=== PATIENT | female | born 1940 | race Caucasian/White ===

== ENCOUNTER 2020-07-05 11:47 | Inpatient (IN) | payer MEDICARE ==
[2020-07-05] VITALS (9 sets, daily range): BP systolic 147–178; BP diastolic 83–101
[~2020-07-05] VITALS: Ht 162.6 cm; Wt 74.0 kg
[2020-07-05] MEDS ORDERED: ONDANSETRON PF 4 MG/2 ML VIAL. ONE (12:11)
[2020-07-05 12:13] LABS: BASO % 1 % (0-3); EOS # 0.1 x10^3/uL (0.0-0.7); EOS % 1 % (0-3); HEMATOCRIT 43.6 % (36.0-47.0); HEMOGLOBIN 14.8 g/dL (12.0-15.5); LYMPH # 2.1 x10^3/uL (1.0-4.8); LYMPH % 25 % (24-48); MEAN CORPUSCULAR HEMOGLOBIN 29 pg (25-35); MEAN CORPUSCULAR HGB CONC 34 g/dL (31-37); MEAN CORPUSCULAR VOLUME 86 fL (79-100); MONO # 0.4 x10^3/uL (0.0-1.1); MONO % 5 % (0-9); NEUT # 5.6 x10^3/uL (1.8-7.7); NEUT % 68 % (31-73); PLATELET COUNT 212 x10^3/uL (140-400); RED BLOOD COUNT 5.07 x10^6/uL (3.50-5.40); RED CELL DISTRIBUTION WIDTH 13.6 % (11.5-14.5); WHITE BLOOD COUNT 8.3 x10^3/uL (4.0-11.0)
--- NOTE | 2020-07-05 12:15 | RAD ---
EXAM: CT Head without IV contrast INDICATION: Reason: CODE STROKE, FOUND DOWN / Spl. Instructions: / History: TECHNIQUE: Multi-detector row CT images were obtained of the head without the use of IV contrast. All CT scans performed at this facility utilize dose optimization techniques as appropriate to the exam, including the following: Automated exposure control and adjustment of the mA and/or KV according to patient size (this includes techniques or standardized protocols for targeted exams where dose is indication/reason for exam). COMPARISON: None FINDINGS: BRAIN PARENCHYMA: No evidence of acute intraparenchymal hemorrhage or infarct. There is extensive bilateral white matter low density that is nonspecific but compatible chronic ischemic microvascular change. VENTRICLES & EXTRA-AXIAL SPACES: Ventricles are within normal limits. Basilar cisterns are patent. No pathologic extra-axial fluid collection or mass. ORBITS: Orbital contents are unremarkable. SINUSES: Visualized paranasal sinuses and mastoid air cells are clear. OSSEOUS & SOFT TISSUES: Calvarium and skull base are intact. IMPRESSION: No acute intracranial pathology. EXAM: CT Cervical Spine without IV contrast INDICATION: Reason: CODE STROKE, FOUND DOWN / Spl. Instructions: / History: TECHNIQUE: Multi-detector row CT images were obtained through the cervical spine without the use of IV contrast. Post-processing sagittal and coronal reconstructed images were obtained for interpretation. All CT scans performed at this facility utilize dose optimization techniques as appropriate to the exam, including the following: Automated exposure control and adjustment of the mA and/or KV according to patient size (this includes techniques or standardized protocols for targeted exams where dose is indication/reason for exam). COMPARISON: None available FINDINGS: CRANIOCERVICAL JUNCTION: Unremarkable. ALIGNMENT: Alignment is within normal limits. OSSEOUS: No evidence of fracture or bone destruction. DISC SPACES: There is degenerative change in the lower cervical spine, most conspicuous at C4-C5 through C6-C7. FACET JOINTS: Unremarkable. SPINAL CANAL: Unremarkable. NEUROFORAMINA: Unremarkable. SOFT TISSUES: There are multiple hypodense lesions in the thyroid gland bilaterally, better evaluated on dedicated thyroid ultrasound on an elective basis. The largest measures 2.2 cm in the right thyroid lobe. IMPRESSION: No acute traumatic findings in the cervical spine with multilevel cervical degenerative spondylosis noted. Incidental thyroid lobe nodules that could be better evaluated with dedicated ultrasound on an elective basis. FOR INTERNAL CODING PURPOSES Critical result: Findings discussed with DISHA DELACRUZ at 07/05/2020 12:07 PM. RESULT CODE: (C) Electronically signed by: Blaire Luna MD (07/05/2020 12:12 PM) [id number]
[2020-07-05 12:23] LABS: CALCIUM 9.7 mg/dL (8.5-10.1); CREATININE 1.1 mg/dL (0.6-1.0); GFR 47.6; POTASSIUM 3.3 mmol/L (3.5-5.1)
[2020-07-05 12:26] LABS: PROTHROMBIN TIME PATIENT 12.3 SEC (11.7-14.0)
[2020-07-05 12:30] LABS: ALBUMIN 3.9 g/dL (3.4-5.0); ALBUMIN/GLOBULIN RATIO 1.1 (1.0-1.7); MAGNESIUM 2.3 mg/dL (1.8-2.4); TOTAL BILIRUBIN 0.5 mg/dL (0.2-1.0); TOTAL PROTEIN 7.3 g/dL (6.4-8.2)
[2020-07-05] MEDS ORDERED: IV NORMAL SALINE 50ML 50 ML IV ONE (12:30)
[2020-07-05] MEDS ORDERED: ALTEPLASE IV SCH (12:30)
[2020-07-05] MEDS ORDERED: LABETALOL 20 MG/4 ML DISP.SYRIN. IVP PRN ×2 (12:30→12:45)
[2020-07-05] MEDS ORDERED: IOHEXOL 350 MG/ML 100 ML VIAL. IV ONE (12:30)
--- NOTE | 2020-07-05 12:33 | PHYS DOC ---
General Adult EDM: Chief Complaint: NEURO SYMPTOMS/DEFICITS HPI: HPI: Patient is a 80 year old female who was brought here by EMS from home after she collapsed at home around 10:30 AM this morning. Her stated that patient was totally normal this morning. He heard a loud noise in the kitchen and when the, found her on the floor, could not talk, could not move her left side. EMS was called, a code stroke was activated. Upon arrival to ER, patient was confused, left-sided weakness significantly. Patient was taken directly to CT scan suite for CT head. Neurologist Dr. Elena was consulted he came to ER to see the patient. EMS said they checked the blood sugar at home and it was 156. Review of Systems: Review of Systems: Constitutional: Denies fever or chills. [] Eyes: Denies change in visual acuity. [] HENT: Denies nasal congestion or sore throat. [] Respiratory: Denies cough or shortness of breath. [] Cardiovascular: Denies chest pain or edema. [] GI: Denies abdominal pain, nausea, vomiting, bloody stools or diarrhea. [] : Denies dysuria. [] Musculoskeletal: Denies back pain or joint pain. [] Integument: Denies rash. [] Neurologic: Positive for headache, positive for left-sided weakness positive for slurred speech. Endocrine: Denies polyuria or polydipsia. [] Lymphatic: Denies swollen glands. [] Psychiatric: Denies depression or anxiety. [] Heart Score: Risk Factors: Risk Factors: DM, Current or recent (<one month) smoker, HTN, HLP, family history of CAD, obesity. Risk Scores: Score 0 - 3: 2.5% MACE over next 6 weeks - Discharge Home Score 4 - 6: 20.3% MACE over next 6 weeks - Admit for Clinical Observation Score 7 - 10: 72.7% MACE over next 6 weeks - Early Invasive Strategies Current Medications: Current Medications Medications (Trade) Dose Ordered Sig/Jeyson Start Time Stop Time Status Last Admin Dose Admin Alteplase, Recombinant 0 ml @ 0 mls/hr Q1H 07/05/20 12:30 07/05/20 12:31 DC Iohexol (Omnipaque 350 Mg/ml) 60 ml 1X ONCE 07/05/20 12:30 07/05/20 12:31 UNV Labetalol HCl (Normodyne Iv Push) 10 mg PRN Q10MIN PRN 07/05/20 12:30 Ondansetron HCl (Zofran) 4 mg 1X ONCE 07/05/20 12:45 07/05/20 12:46 07/05/20 12:23 4 MG Sodium Chloride 50 ml @ 0 mls/hr 1X ONCE 07/05/20 12:30 07/05/20 12:31 DC Allergies: Allergies: Allergies Coded Allergies Type Severity Reaction Last Updated Verified No Known Drug Allergies 07/05/20 No Physical Exam: PE: Constitutional: Well developed, well nourished, no acute distress, non-toxic appearance. [] HENT: Normocephalic, atraumatic, bilateral external ears normal, oropharynx moist, no oral exudates, nose normal. [] Eyes: PERRLA, EOMI, conjunctiva normal, no discharge. [] Neck: Normal range of motion, no tenderness, supple, no stridor. [] Cardiovascular:Heart rate regular rhythm, no murmur [] Lungs & Thorax: Bilateral breath sounds clear to auscultation [] Abdomen: Bowel sounds normal, soft, no tenderness, no masses, no pulsatile masses. [] Skin: Warm, dry, no erythema, no rash. [] Back: No tenderness, no CVA tenderness. [] Extremities: No tenderness, no cyanosis, no clubbing, ROM intact, no edema. [] Neurologic: Alert and oriented X 3, left side weaker than right side, speech was slurred. Psychologic: Affect normal, judgement normal, mood normal. [] Current Patient Data: Labs: Laboratory Tests Test 07/05/20 12:02 White Blood Count 8.3 x10^3/uL (4.0-11.0) Red Blood Count 5.07 x10^6/uL (3.50-5.40) Hemoglobin 14.8 g/dL (12.0-15.5) Hematocrit 43.6 % (36.0-47.0) Mean Corpuscular Volume 86 fL (79-100) Mean Corpuscular Hemoglobin 29 pg (25-35) Mean Corpuscular Hemoglobin Concent 34 g/dL (31-37) Red Cell Distribution Width 13.6 % (11.5-14.5) Platelet Count 212 x10^3/uL (140-400) Neutrophils (%) (Auto) 68 % (31-73) Lymphocytes (%) (Auto) 25 % (24-48) Monocytes (%) (Auto) 5 % (0-9) Eosinophils (%) (Auto) 1 % (0-3) Basophils (%) (Auto) 1 % (0-3) Neutrophils # (Auto) 5.6 x10^3/uL (1.8-7.7) Lymphocytes # (Auto) 2.1 x10^3/uL (1.0-4.8) Monocytes # (Auto) 0.4 x10^3/uL (0.0-1.1) Eosinophils # (Auto) 0.1 x10^3/uL (0.0-0.7) Basophils # (Auto) 0.0 x10^3/uL (0.0-0.2) Prothrombin Time 12.3 SEC (11.7-14.0) Prothrombin Time INR 1.0 (0.8-1.1) Activated Partial Thromboplast Time 22 SEC (24-38) L Sodium Level 139 mmol/L (136-145) Potassium Level 3.3 mmol/L (3.5-5.1) L Chloride Level 99 mmol/L (98-107) Carbon Dioxide Level 25 mmol/L (21-32) Anion Gap 15 (6-14) H Blood Urea Nitrogen 17 mg/dL (7-20) Creatinine 1.1 mg/dL (0.6-1.0) H Estimated GFR (Cockcroft-Gault) 47.6 BUN/Creatinine Ratio 15 (6-20) Glucose Level 139 mg/dL (70-99) H Calcium Level 9.7 mg/dL (8.5-10.1) Magnesium Level 2.3 mg/dL (1.8-2.4) Total Bilirubin 0.5 mg/dL (0.2-1.0) Aspartate Amino Transferase (AST) 21 U/L (15-37) Alanine Aminotransferase (ALT) 25 U/L (14-59) Alkaline Phosphatase 102 U/L (46-116) Total Protein 7.3 g/dL (6.4-8.2) Albumin 3.9 g/dL (3.4-5.0) Albumin/Globulin Ratio 1.1 (1.0-1.7) Laboratory Tests 07/05/20 12:02 Laboratory Tests 07/05/20 12:02 EKG: EKG: [] Radiology/Procedures: Radiology/Procedures: [][facility] [address] [place] [address] IMAGING REPORT Signed PATIENT: RICO ESPOSITO ACCOUNT: [id number] : 1940 LOCATION: ER AGE: 80 SEX: F EXAM STATUS: PRE ER ORD. PHYSICIAN: DISHA DELACRUZ DO REASON: CODE STROKE, FOUND DOWN PROCEDURE: CT HEAD AND CERVICAL SPINE WO EXAM: CT Head without IV contrast INDICATION: Reason: CODE STROKE, FOUND DOWN / Spl. Instructions: / History: TECHNIQUE: Multi-detector row CT images were obtained of the head without the use of IV contrast. All CT scans performed at this facility utilize dose optimization techniques as appropriate to the exam, including the following: Automated exposure control and adjustment of the mA and/or KV according to patient size (this includes techniques or standardized protocols for targeted exams where dose is indication/reason for exam). COMPARISON: None FINDINGS: BRAIN PARENCHYMA: No evidence of acute intraparenchymal hemorrhage or infarct. There is extensive bilateral white matter low density that is nonspecific but compatible chronic ischemic microvascular change. VENTRICLES & EXTRA-AXIAL SPACES: Ventricles are within normal limits. Basilar cisterns are patent. No pathologic extra-axial fluid collection or mass. ORBITS: Orbital contents are unremarkable. SINUSES: Visualized paranasal sinuses and mastoid air cells are clear. OSSEOUS & SOFT TISSUES: Calvarium and skull base are intact. IMPRESSION: No acute intracranial pathology. EXAM: CT Cervical Spine without IV contrast INDICATION: Reason: CODE STROKE, FOUND DOWN / Spl. Instructions: / History: TECHNIQUE: Multi-detector row CT images were obtained through the cervical spine without the use of IV contrast. Post-processing sagittal and coronal reconstructed images were obtained for interpretation. All CT scans performed at this facility utilize dose optimization techniques as appropriate to the exam, including the following: Automated exposure control and adjustment of the mA and/or KV according to patient size (this includes techniques or standardized protocols for targeted exams where dose is indication/reason for exam). COMPARISON: None available FINDINGS: CRANIOCERVICAL JUNCTION: Unremarkable. ALIGNMENT: Alignment is within normal limits. OSSEOUS: No evidence of fracture or bone destruction. DISC SPACES: There is degenerative change in the lower cervical spine, most conspicuous at C4-C5 through C6-C7. FACET JOINTS: Unremarkable. SPINAL CANAL: Unremarkable. NEUROFORAMINA: Unremarkable. SOFT TISSUES: There are multiple hypodense lesions in the thyroid gland bilaterally, better evaluated on dedicated thyroid ultrasound on an elective basis. The largest measures 2.2 cm in the right thyroid lobe. IMPRESSION: No acute traumatic findings in the cervical spine with multilevel cervical degenerative spondylosis noted. Incidental thyroid lobe nodules that could be better evaluated with dedicated ultrasound on an elective basis. FOR INTERNAL CODING PURPOSES Critical result: Findings discussed with DISHA DELACRUZ at 07/05/2020 12:07 PM. RESULT CODE: (C) Electronically signed by: Blaire Luna MD (07/05/2020 12:12 PM) [id number] [facility] [address] [place] [address] IMAGING REPORT Signed PATIENT: RICO ESPOSITO ACCOUNT: [id number] : 1940 LOCATION: ER AGE: 80 SEX: F EXAM STATUS: REG ER ORD. PHYSICIAN: DISHA DELACRUZ DO REASON: CODE STROKE, SLURRED SPEECH, [id number] 60ML PROCEDURE: CTA HEAD/NECK - CODE STROKE CTA HEAD/NECK - CODE STROKE History:Reason: CODE STROKE, SLURRED SPEECH, [id number] 60ML / Spl. Instructions: / History: Technique: After bolus of intravenous contrast, volumetric CT data acquisition was acquired of the head and neck. Multiplanar reconstruction images to include MIP and 3-D reconstruction images are submitted. Exposure: One or more of the following individualized dose reduction techniques were utilized for this examination: 1. Automated exposure control 2. Adjustment of the mA and/or kV according to patient size 3. Use of iterative reconstruction technique. Comparison: July 05, 2020 Any determination of stenosis is based on NASCET criteria. Head CTA: ICA: Bilateral carotid siphon atheromatous plaque. No stenosis or occlusion. MCA: No stenosis, occlusion or aneurysm. TANA: No stenosis, occlusion or aneurysm. ADOLESCENT SPECIALIST: No stenosis, occlusion or aneurysm. Basilar artery: No stenosis, occlusion or aneurysm. Distal vertebral arteries: No stenosis, occlusion or aneurysm. Mild paranasal sinus mucosal thickening most prominent within the right maxillary sinus. Mastoid air cells are clear. CT angiogram neck: Aortic arch: Atheromatous plaque within the aortic arch and branch vessels. Common carotid arteries: No stenosis, occlusion or dissection. Tortuous common carotid arteries proximally. Internal carotid arteries: No stenosis, occlusion or dissection. Mild atheromatous plaque within the left carotid bifurcation. External carotid arteries: Patent Vertebral arteries: No stenosis, occlusion or dissection. Mild atheromatous plaque within the right vertebral artery origin. Mild pulmonary emphysema. 5 mm right upper lobe nodular opacity (series 3 image 70). Bilateral upper lobe calcified pulmonary nodules. Enlarged multinodular thyroid with largest right thyroid nodule measuring 1.9 cm. Bones: Advanced multilevel cervical spondylosis most prominent C4-C5, C5-C6 and C6-C7. Impression: 1. No arterial stenosis or occlusion within the head or neck. 2. Mild atheromatous plaque within the head and neck. 3. Right upper lobe nodular opacity. Recommend comparison with prior imaging studies. If prior imaging studies are not available, recommend one-year follow-up if high risk. 4. Multinodular thyroid. Nonemergent ultrasound can further evaluate. FOR INTERNAL CODING PURPOSES Critical result: Findings discussed with DISHA DELACRUZ at 07/05/2020 1:33 PM. RESULT CODE: (C) Electronically signed by: Moncho Cat DO (07/05/2020 1:35 PM) [id number] DICTATED and SIGNED BY: MONCHO CAT DO DATE: 07/05/20 1335 Course & Med Decision Making: Course & Med Decision Making Pertinent Labs and Imaging studies reviewed. (See chart for details) NIHSS per Rn was 8. Patient was evaluated by neurologist Dr. Trever Elena, who recommended to give patient IV TPA. Patient will receive TPA in the ER, her symptoms improved significantly. Her NIH stroke scale improved to 1 after TPA was given. Patient will be admitted to hospital for further evaluation and treatment. Dragon Disclaimer: Dragon Disclaimer: This electronic medical record was generated, in whole or in part, using a voice recognition dictation system. Departure Departure Impression: Primary Impression: Acute CVA (cerebrovascular accident) Disposition: ADMITTED INPATIENT Admitting Physician: JENNA (Dr. Gavino Vu), Gavino Vu Condition: IMPROVED Justicifation of Admission Dx: Justifications for Admission: Justification of Admission Dx: Yes Stroke - Ischemic: Stroke-Ischemic DISHA DELACRUZ DO Jul 05, 2020 12:33
[2020-07-05] MEDS ORDERED: ALTEPLASE 6.2 MG IV ONE (12:45)
[2020-07-05] MEDS ORDERED: ONDANSETRON PF 4 MG/2 ML VIAL. IVP ONE (12:45)
[2020-07-05] MEDS ORDERED: CONTRAST GIVEN. MC PRN (12:45)
[2020-07-05] MEDS ORDERED: ACETAMINOPHEN 325 MG SUPP.RECT. PR PRN (12:45)
[2020-07-05] MEDS ORDERED: ACETAMINOPHEN 325 MG TABLET. PO PRN (12:45)
[2020-07-05] MEDS ORDERED: ONDANSETRON PF 4 MG/2 ML VIAL. IV PRN (12:45)
--- NOTE | 2020-07-05 13:20 | PDOC2 ---
NEUROLOGY CONSULT Date of Service DOS: DATE: 07/05/20 TIME: 13:13 Reason for Consult Reason for Consult: Stroke Referring Physician Referring Physician: Dr. Vu Source Source: Caregiver (), Chart review, Patient History of Present Illness History of Present Illness I am examining the patient in the emergency department. She is an 80-year-old right-handed female who's has been heard that at 10:30 AM today find a patient on the floor. There was some aphasia and right-sided weakness. There is no prior history of stroke, seizure, or head injury. She denies headache or diplopia. Past Medical History Cardiovascular: HTN, Hyperlipidemia Endocrine: Diabetes Past Surgical History Past Surgical History: No pertinent history Family History Family History: CAD, Other ( arthritis) Social History Social History , no tobacco or alcohol Current Medications Current Medications Current Medications Ondansetron HCl (Zofran) 4 mg STK-MED ONCE .ROUTE ; Start 07/05/20 at 12:11; Stop 07/05/20 at 12:12; Status DC Ondansetron HCl (Zofran) 4 mg 1X ONCE IVP Last administered on 07/05/20at 12:23; Start 07/05/20 at 12:45; Stop 07/05/20 at 12:46; Status DC Alteplase, Recombinant 0 ml @ 0 mls/hr 1X ONCE IV Last administered on 07/05/20at 12:34; Start 07/05/20 at 12:45; Stop 07/05/20 at 12:46; Status DC Alteplase, Recombinant 0 ml @ 0 mls/hr Q1H IV Last administered on 07/05/20at 12:37; Start 07/05/20 at 12:30; Stop 07/05/20 at 12:31; Status DC Sodium Chloride 50 ml @ 0 mls/hr 1X ONCE IV ; Start 07/05/20 at 12:30; Stop 07/05/20 at 12:31; Status DC Labetalol HCl (Normodyne Iv Push) 10 mg PRN Q10MIN PRN IVP HYPERTENSION; Start 07/05/20 at 12:30; Stop 07/05/20 at 12:52; Status DC Iohexol (Omnipaque 350 Mg/ml) 60 ml 1X ONCE IV Last administered on 07/05/20at 12:57; Start 07/05/20 at 12:30; Stop 07/05/20 at 12:34; Status DC Info (CONTRAST GIVEN -- Rx MONITORING) 1 each PRN DAILY PRN MC SEE COMMENTS; Start 07/05/20 at 12:45; Stop 07/07/20 at 12:44 Sodium Chloride 1,000 ml @ 70 mls/hr [id number] IV ; Start 07/05/20 at 12:44 Labetalol HCl (Normodyne Iv Push) 10 mg PRN Q10MIN PRN IVP HYPERTENSION; Start 07/05/20 at 12:45 Nicardipine HCl 50 mg/Sodium Chloride 250 ml @ 25 mls/hr CONT PRN PRN IV HYPERTENSION; Start 07/05/20 at 12:45 Acetaminophen (Tylenol) 650 mg PRN Q6HRS PRN PO MILD PAIN / TEMP > 100.3'F; Start 07/05/20 at 12:45 Acetaminophen (Tylenol Supp) 325 mg PRN Q6HRS PRN [place] MILD PAIN / TEMP > 100.3'F; Start 07/05/20 at 12:45 Ondansetron HCl (Zofran) 4 mg PRN Q6HRS PRN IV NAUSEA/VOMITING; Start 07/05/20 at 12:45 Allergies Allergies: Coded Allergies: No Known Drug Allergies (Unverified , 07/05/20) ROS Review of System Negative for fever, chills, weight loss, shortness of breath, chest pain, indigestion, hematochezia, melena, and dysuria. Full 14-point review of systems is negative. Physical Exam Physical Examination General: Well-developed, well-nourished white female in no acute distress HEENT: Normocephalic andatraumatic. Temporal arteriespulsatile and nontender. Neck: Supple without bruit, no meningismus Musculoskeletal: Stability:see neurologic. Gait exam:see neurologic. Tone:see neurologic.Strength:see neurologic. Neurological: Mental Status:orientation, memory, attention span/concentration, language, fund of knowledge: mild expressive aphasia, able tell me her name and answer some questions mostly by nodding yes or no, not talking. Cranial Nerves:Pupils equal and reactive to light, extraocular movements areintact, visual leslie are full to confrontation. Facial sensation is normal. There is a slight right central facial weakness. Vestibulo-ocular reflex is intact. Palate elevates and tongue protrudes in midline. All other cranial related problems are negative except as mentioned before.Reflexes:2+ and symmetric with flexor plantar responses. Motor:4/5 right hemiparesis. Coordination:Finger-nose finger and [id number] testing are normal. Rapid alternating movements and fine finger movements are intact. Gait: not tested. Sensory:Normal pinprick, vibration, light touch, proprioception. Labs Labs Laboratory Tests Test 07/05/20 12:02 White Blood Count 8.3 x10^3/uL (4.0-11.0) Red Blood Count 5.07 x10^6/uL (3.50-5.40) Hemoglobin 14.8 g/dL (12.0-15.5) Hematocrit 43.6 % (36.0-47.0) Mean Corpuscular Volume 86 fL (79-100) Mean Corpuscular Hemoglobin 29 pg (25-35) Mean Corpuscular Hemoglobin Concent 34 g/dL (31-37) Red Cell Distribution Width 13.6 % (11.5-14.5) Platelet Count 212 x10^3/uL (140-400) Neutrophils (%) (Auto) 68 % (31-73) Lymphocytes (%) (Auto) 25 % (24-48) Monocytes (%) (Auto) 5 % (0-9) Eosinophils (%) (Auto) 1 % (0-3) Basophils (%) (Auto) 1 % (0-3) Neutrophils # (Auto) 5.6 x10^3/uL (1.8-7.7) Lymphocytes # (Auto) 2.1 x10^3/uL (1.0-4.8) Monocytes # (Auto) 0.4 x10^3/uL (0.0-1.1) Eosinophils # (Auto) 0.1 x10^3/uL (0.0-0.7) Basophils # (Auto) 0.0 x10^3/uL (0.0-0.2) Prothrombin Time 12.3 SEC (11.7-14.0) Prothromb Time International Ratio 1.0 (0.8-1.1) Activated Partial Thromboplast Time 22 SEC (24-38) Sodium Level 139 mmol/L (136-145) Potassium Level 3.3 mmol/L (3.5-5.1) Chloride Level 99 mmol/L (98-107) Carbon Dioxide Level 25 mmol/L (21-32) Anion Gap 15 (6-14) Blood Urea Nitrogen 17 mg/dL (7-20) Creatinine 1.1 mg/dL (0.6-1.0) Estimated GFR (Cockcroft-Gault) 47.6 BUN/Creatinine Ratio 15 (6-20) Glucose Level 139 mg/dL (70-99) Calcium Level 9.7 mg/dL (8.5-10.1) Magnesium Level 2.3 mg/dL (1.8-2.4) Total Bilirubin 0.5 mg/dL (0.2-1.0) Aspartate Amino Transf (AST/SGOT) 21 U/L (15-37) Alanine Aminotransferase (ALT/SGPT) 25 U/L (14-59) Alkaline Phosphatase 102 U/L (46-116) Troponin I Quantitative 0.051 ng/mL (0.000-0.055) Total Protein 7.3 g/dL (6.4-8.2) Albumin 3.9 g/dL (3.4-5.0) Albumin/Globulin Ratio 1.1 (1.0-1.7) Laboratory Tests Test 07/05/20 12:02 White Blood Count 8.3 x10^3/uL (4.0-11.0) Red Blood Count 5.07 x10^6/uL (3.50-5.40) Hemoglobin 14.8 g/dL (12.0-15.5) Hematocrit 43.6 % (36.0-47.0) Mean Corpuscular Volume 86 fL (79-100) Mean Corpuscular Hemoglobin 29 pg (25-35) Mean Corpuscular Hemoglobin Concent 34 g/dL (31-37) Red Cell Distribution Width 13.6 % (11.5-14.5) Platelet Count 212 x10^3/uL (140-400) Neutrophils (%) (Auto) 68 % (31-73) Lymphocytes (%) (Auto) 25 % (24-48) Monocytes (%) (Auto) 5 % (0-9) Eosinophils (%) (Auto) 1 % (0-3) Basophils (%) (Auto) 1 % (0-3) Neutrophils # (Auto) 5.6 x10^3/uL (1.8-7.7) Lymphocytes # (Auto) 2.1 x10^3/uL (1.0-4.8) Monocytes # (Auto) 0.4 x10^3/uL (0.0-1.1) Eosinophils # (Auto) 0.1 x10^3/uL (0.0-0.7) Basophils # (Auto) 0.0 x10^3/uL (0.0-0.2) Prothrombin Time 12.3 SEC (11.7-14.0) Prothromb Time International Ratio 1.0 (0.8-1.1) Activated Partial Thromboplast Time 22 SEC (24-38) Sodium Level 139 mmol/L (136-145) Potassium Level 3.3 mmol/L (3.5-5.1) Chloride Level 99 mmol/L (98-107) Carbon Dioxide Level 25 mmol/L (21-32) Anion Gap 15 (6-14) Blood Urea Nitrogen 17 mg/dL (7-20) Creatinine 1.1 mg/dL (0.6-1.0) Estimated GFR (Cockcroft-Gault) 47.6 BUN/Creatinine Ratio 15 (6-20) Glucose Level 139 mg/dL (70-99) Calcium Level 9.7 mg/dL (8.5-10.1) Magnesium Level 2.3 mg/dL (1.8-2.4) Total Bilirubin 0.5 mg/dL (0.2-1.0) Aspartate Amino Transf (AST/SGOT) 21 U/L (15-37) Alanine Aminotransferase (ALT/SGPT) 25 U/L (14-59) Alkaline Phosphatase 102 U/L (46-116) Troponin I Quantitative 0.051 ng/mL (0.000-0.055) Total Protein 7.3 g/dL (6.4-8.2) Albumin 3.9 g/dL (3.4-5.0) Albumin/Globulin Ratio 1.1 (1.0-1.7) Images Images CT Head without IV contrast INDICATION: Reason: CODE STROKE, FOUND DOWN / Spl. Instructions: / History: TECHNIQUE: Multi-detector row CT images were obtained of the head without the use of IV contrast. All CT scans performed at this facility utilize dose optimization techniques as appropriate to the exam, including the following: Automated exposure control and adjustment of the mA and/or KV according to patient size (this includes techniques or standardized protocols for targeted exams where dose is indication/reason for exam). COMPARISON: None FINDINGS: BRAIN PARENCHYMA: No evidence of acute intraparenchymal hemorrhage or infarct. There is extensive bilateral white matter low density that is nonspecific but compatible chronic ischemic microvascular change. VENTRICLES & EXTRA-AXIAL SPACES: Ventricles are within normal limits. Basilar cisterns are patent. No pathologic extra-axial fluid collection or mass. ORBITS: Orbital contents are unremarkable. SINUSES: Visualized paranasal sinuses and mastoid air cells are clear. OSSEOUS & SOFT TISSUES: Calvarium and skull base are intact. IMPRESSION: No acute intracranial pathology. EXAM: CT Cervical Spine without IV contrast INDICATION: Reason: CODE STROKE, FOUND DOWN / Spl. Instructions: / History: TECHNIQUE: Multi-detector row CT images were obtained through the cervical spine without the use of IV contrast. Post-processing sagittal and coronal reconstructed images were obtained for interpretation. All CT scans performed at this facility utilize dose optimization techniques as appropriate to the exam, including the following: Automated exposure control and adjustment of the mA and/or KV according to patient size (this includes techniques or standardized protocols for targeted exams where dose is indication/reason for exam). COMPARISON: None available FINDINGS: CRANIOCERVICAL JUNCTION: Unremarkable. ALIGNMENT: Alignment is within normal limits. OSSEOUS: No evidence of fracture or bone destruction. DISC SPACES: There is degenerative change in the lower cervical spine, most conspicuous at C4-C5 through C6-C7. FACET JOINTS: Unremarkable. SPINAL CANAL: Unremarkable. NEUROFORAMINA: Unremarkable. SOFT TISSUES: There are multiple hypodense lesions in the thyroid gland bilaterally, better evaluated on dedicated thyroid ultrasound on an elective basis. The largest measures 2.2 cm in the right thyroid lobe. IMPRESSION: No acute traumatic findings in the cervical spine with multilevel cervical degenerative spondylosis noted. Incidental thyroid lobe nodules that could be better evaluated with dedicated ultrasound on an elective basis. Assessment/Plan Assessment/Plan Impression: Clinically a left hemispheric stroke involving cortical structures. She is in the time window for Alteplace. Recommendations: I discussed risk, benefits, alternatives with the patient's and we will proceed with Alte[facility] ICU monitoring CT angiogram today Echocardiogram MRI of the brain, delay until 24 hours after alteplase Rehabilitation modalities Hold anticoagulants, antiplatelet agents for 24 hours per protocol Blood pressure medication management per stroke protocol Fully discussed with the patient's . Thank you for letting me help the patient care. JESUS ESCOBAR MD Jul 05, 2020 13:20
--- NOTE | 2020-07-05 13:38 | RAD ---
CTA HEAD/NECK - CODE STROKE History:Reason: CODE STROKE, SLURRED SPEECH, [id number] 60ML / Spl. Instructions: / History: Technique: After bolus of intravenous contrast, volumetric CT data acquisition was acquired of the head and neck. Multiplanar reconstruction images to include MIP and 3-D reconstruction images are submitted. Exposure: One or more of the following individualized dose reduction techniques were utilized for this examination: 1. Automated exposure control 2. Adjustment of the mA and/or kV according to patient size 3. Use of iterative reconstruction technique. Comparison: July 05, 2020 Any determination of stenosis is based on NASCET criteria. Head CTA: ICA: Bilateral carotid siphon atheromatous plaque. No stenosis or occlusion. MCA: No stenosis, occlusion or aneurysm. TANA: No stenosis, occlusion or aneurysm. NEEDLE LOOM SETTER: No stenosis, occlusion or aneurysm. Basilar artery: No stenosis, occlusion or aneurysm. Distal vertebral arteries: No stenosis, occlusion or aneurysm. Mild paranasal sinus mucosal thickening most prominent within the right maxillary sinus. Mastoid air cells are clear. CT angiogram neck: Aortic arch: Atheromatous plaque within the aortic arch and branch vessels. Common carotid arteries: No stenosis, occlusion or dissection. Tortuous common carotid arteries proximally. Internal carotid arteries: No stenosis, occlusion or dissection. Mild atheromatous plaque within the left carotid bifurcation. External carotid arteries: Patent Vertebral arteries: No stenosis, occlusion or dissection. Mild atheromatous plaque within the right vertebral artery origin. Mild pulmonary emphysema. 5 mm right upper lobe nodular opacity (series 3 image 70). Bilateral upper lobe calcified pulmonary nodules. Enlarged multinodular thyroid with largest right thyroid nodule measuring 1.9 cm. Bones: Advanced multilevel cervical spondylosis most prominent C4-C5, C5-C6 and C6-C7. Impression: 1. No arterial stenosis or occlusion within the head or neck. 2. Mild atheromatous plaque within the head and neck. 3. Right upper lobe nodular opacity. Recommend comparison with prior imaging studies. If prior imaging studies are not available, recommend one-year follow-up if high risk. 4. Multinodular thyroid. Nonemergent ultrasound can further evaluate. FOR INTERNAL CODING PURPOSES Critical result: Findings discussed with DISHA DELACRUZ at 07/05/2020 1:33 PM. RESULT CODE: (C) Electronically signed by: Moncho Cat DO (07/05/2020 1:35 PM) [id number]
[2020-07-05] MEDS: IV NORMAL SALINE 1000ML BAG 1,000 ML IV SCH (13:43)
[2020-07-05] MEDS ORDERED: PANTOPRAZOLE IV PUSH 40 MG VIAL. IVP ONE (15:15)
[2020-07-05] MEDS ORDERED: DIPH25CA58 PO (17:45)
[2020-07-05] MEDS ORDERED: DICY10CA3 PO (17:45)
[2020-07-05] MEDS ORDERED: TRIA1CAP3 PO (17:45)
[2020-07-05] MEDS ORDERED: POTA20TA4 PO (17:45)
[2020-07-05] MEDS ORDERED: OMEP40CA45 PO (17:45)
[2020-07-05] MEDS ORDERED: TRAM100T2 PO (17:45)
[2020-07-05] MEDS ORDERED: SIMV40TA18 PO (17:45)
[2020-07-05] MEDS ORDERED: IBUPROFEN 400 MG TABLET. PO PRN (19:00)
[2020-07-05] MEDS ORDERED: DICYCLOMINE HCL 10 MG CAPSULE PO PRN (19:00)
[2020-07-05] MEDS ORDERED: POTASSIUM CHLORIDE 20 MEQ TABLET.ER. PO ONE (19:00)
[2020-07-05] MEDS: traMADol 50 MG TABLET PO SCH (20:50)
[2020-07-05] MEDS ORDERED: SIMVASTATIN 40 MG TABLET. PO SCH (21:00)
[2020-07-05] MEDS ORDERED: TEMAZEPAM 15 MG CAPSULE PO PRN (21:15)
[2020-07-06] VITALS (17 sets, daily range): BP systolic 131–176; BP diastolic 65–91
[2020-07-06] MEDS: IV NORMAL SALINE 1000ML BAG 1,000 ML IV SCH (03:23)
--- NOTE | 2020-07-06 06:16 | EKG ---
[facility] [address] [place] [address] Test Date: 2020-07-05 Test Time: 12:06:55 Pat Name: RICO ESPOSITO Department: Room: Gender: F Hog Handler: : [id number] Requested By: DISHA DELACRUZ Order Number: [id number] Reading MD: Measurements Intervals [place] Rate: 69 P: 45 LA: 160 QRS: -1 QRSD: 80 T: 39 QT: 502 QTc: 540 Interpretive Statements SINUS RHYTHM LEFTWARD AXIS PROLONGED QT NO SPECIFIC ECG ABNORMALITIES RI6.02 No previous ECG available for comparison
[2020-07-06 07:20] LABS: CHOLESTEROL/HDL RATIO 2.8
[2020-07-06] MEDS ORDERED: PANTOPRAZOLE 40 MG TABLET.DR. PO SCH (07:30)
[2020-07-06] MEDS: traMADol 50 MG TABLET PO SCH (08:13)
--- NOTE | 2020-07-06 08:26 | PDOC ---
Provider Note Provider Note [id number] Justicifation of Admission Dx: Justifications for Admission: Justification of Admission Dx: Yes Stroke - Ischemic: Stroke-Ischemic KATIE VERAS MD Jul 06, 2020 08:26
--- NOTE | 2020-07-06 08:42 | HP ---
ADMIT DATE: CHIEF COMPLAINT: Stroke. HISTORY OF PRESENT ILLNESS: This is an 80-year-old white female followed by a doctor at [facility] came in with acute right-sided weakness and aphasia. CT scan of the head was normal, and she was felt to be having active CVA and Dr. Johnson saw and instituted t-PA protocol, which has resulted in significant improvement in her. Carotid CTA was clear. Laboratory studies were unremarkable and she is feeling much better at this time. PAST MEDICAL HISTORY: HOME MEDICATIONS: Listed per the chart. ALLERGIES: No allergies. MEDICAL ILLNESSES: No other serious known medical problems, prior cardiac or neurologic events. SOCIAL HISTORY: Nonsmoker, and lives at home. Nondrinker. FAMILY HISTORY: Unremarkable. REVIEW OF SYSTEMS: No other complaints. OBJECTIVE: ENT: All within normal limits. NECK: No masses, bruits or nodes. LUNGS: Clear, without tachypnea. CARDIOVASCULAR: Regular rate. No irregular beat or murmur. ABDOMEN: Soft, benign and nontender. NEUROLOGIC: She moves all extremities well. Speech is normal. Mentation appropriate. Cranial nerves 3 through 12 appeared to be intact. Cerebellar function normal as well. Gait was not tested. Balance was not tested. EXTREMITIES: Excellent pedal and radial pulses. No edema. No joint or skin lesions. ASSESSMENT: Excellent response to t-PA for left-sided cerebrovascular accident that appeared to be middle cerebral artery in origin. Etiology is not clear as she is a nonsmoker with controlled blood pressure and on statin and carotids are clear. PLAN: Echocardiogram is pending. Continue treatment protocol. KATIE VERAS MD DR: MELITA/venkata JOB#: [id number] / [id number]
[2020-07-06] MEDS ORDERED: diphenhydrAMINE HCL 25 MG CAPSULE PO SCH (09:00)
[2020-07-06] MEDS ORDERED: POTASSIUM CHLORIDE 20 MEQ TABLET.ER. PO SCH (09:00)
[2020-07-06] MEDS ORDERED: TRIAMTERENE/HCTZ 37.5/25MG TABLET. PO SCH (09:00)
--- NOTE | 2020-07-06 12:32 | PDOC ---
PROGRESS NOTES Assessment Problems Medical Problems: (1) Acute CVA (cerebrovascular accident) Status: Acute Clinically a left hemispheric stroke involving cortical structures, all symptoms resolved with Alteplace. Plan Await echocardiogram Await MRI of the brain, 24 hours after alteplase Rehabilitation modalities Patient has had stomach problems with aspirin, willing to take coated baby aspirin Blood pressure medication management per stroke protocol Depending on test results, consider discharge later today with home health Radiologist recommends one-year follow-up of right upper lobe nodular opacity and nonemergent ultrasound for multinodular thyroid. Follow-up with neurology as needed Fully discussed with the patient's and daughter. Subjective No complaints, has been up walking with therapy Objective Vital Signs Date Time Temp Pulse Resp B/P (MAP) Pulse Ox O2 Delivery O2 Flow Rate FiO2 07/06/20 11:00 97.8 68 16 138/70 (92) 94 Room Air 97.8 07/06/20 08:20 2.0 Intake and Output 07/06/20 07:00 Intake Total 642.1 ml Output Total 675 ml Balance -32.9 ml Intake Oral 530 ml IV Total 112.1 ml Output Urine Total 675 ml PHYSICAL EXAM Alert. Oriented to time, place and person. PERRL. EOMI. CN: no focal findings. Muscle tone: normal. Muscle strength: 5/5 DTR: 2+ Plantar reflex: Flexor Gait: not examined in bed. Sensory exam: no abnormal findings. No cerebellar signs elicited. Review of Relevant I have reviewed the following items saulo (where applicable) has been applied. Labs Laboratory Tests Test 07/05/20 12:02 07/06/20 06:00 White Blood Count 8.3 x10^3/uL (4.0-11.0) Red Blood Count 5.07 x10^6/uL (3.50-5.40) Hemoglobin 14.8 g/dL (12.0-15.5) Hematocrit 43.6 % (36.0-47.0) Mean Corpuscular Volume 86 fL (79-100) Mean Corpuscular Hemoglobin 29 pg (25-35) Mean Corpuscular Hemoglobin Concent 34 g/dL (31-37) Red Cell Distribution Width 13.6 % (11.5-14.5) Platelet Count 212 x10^3/uL (140-400) Neutrophils (%) (Auto) 68 % (31-73) Lymphocytes (%) (Auto) 25 % (24-48) Monocytes (%) (Auto) 5 % (0-9) Eosinophils (%) (Auto) 1 % (0-3) Basophils (%) (Auto) 1 % (0-3) Neutrophils # (Auto) 5.6 x10^3/uL (1.8-7.7) Lymphocytes # (Auto) 2.1 x10^3/uL (1.0-4.8) Monocytes # (Auto) 0.4 x10^3/uL (0.0-1.1) Eosinophils # (Auto) 0.1 x10^3/uL (0.0-0.7) Basophils # (Auto) 0.0 x10^3/uL (0.0-0.2) Prothrombin Time 12.3 SEC (11.7-14.0) Prothromb Time International Ratio 1.0 (0.8-1.1) Activated Partial Thromboplast Time 22 SEC (24-38) Sodium Level 139 mmol/L (136-145) Potassium Level 3.3 mmol/L (3.5-5.1) Chloride Level 99 mmol/L (98-107) Carbon Dioxide Level 25 mmol/L (21-32) Anion Gap 15 (6-14) Blood Urea Nitrogen 17 mg/dL (7-20) Creatinine 1.1 mg/dL (0.6-1.0) Estimated GFR (Cockcroft-Gault) 47.6 BUN/Creatinine Ratio 15 (6-20) Glucose Level 139 mg/dL (70-99) Calcium Level 9.7 mg/dL (8.5-10.1) Magnesium Level 2.3 mg/dL (1.8-2.4) Total Bilirubin 0.5 mg/dL (0.2-1.0) Aspartate Amino Transf (AST/SGOT) 21 U/L (15-37) Alanine Aminotransferase (ALT/SGPT) 25 U/L (14-59) Alkaline Phosphatase 102 U/L (46-116) Troponin I Quantitative 0.051 ng/mL (0.000-0.055) Total Protein 7.3 g/dL (6.4-8.2) Albumin 3.9 g/dL (3.4-5.0) Albumin/Globulin Ratio 1.1 (1.0-1.7) Triglycerides Level 127 mg/dL (0-150) Cholesterol Level 149 mg/dL (0-200) LDL Cholesterol, Calculated 70 mg/dL (0-100) VLDL Cholesterol, Calculated 25 mg/dL (0-40) Non-HDL Cholesterol Calculated 95 mg/dL (0-129) HDL Cholesterol 54 mg/dL (40-60) Cholesterol/HDL Ratio 2.8 Laboratory Tests Test 07/06/20 06:00 Triglycerides Level 127 mg/dL (0-150) Cholesterol Level 149 mg/dL (0-200) LDL Cholesterol, Calculated 70 mg/dL (0-100) VLDL Cholesterol, Calculated 25 mg/dL (0-40) Non-HDL Cholesterol Calculated 95 mg/dL (0-129) HDL Cholesterol 54 mg/dL (40-60) Cholesterol/HDL Ratio 2.8 Medications Current Medications Ondansetron HCl (Zofran) 4 mg STK-MED ONCE .ROUTE ; Start 07/05/20 at 12:11; Stop 07/05/20 at 12:12; Status DC Ondansetron HCl (Zofran) 4 mg 1X ONCE IVP Last administered on 07/05/20at 12:23; Start 07/05/20 at 12:45; Stop 07/05/20 at 12:46; Status DC Alteplase, Recombinant 0 ml @ 0 mls/hr 1X ONCE IV Last administered on 11/12at 12:34; Start 07/05/20 at 12:45; Stop 07/05/20 at 12:46; Status DC Alteplase, Recombinant 0 ml @ 0 mls/hr Q1H IV Last administered on 07/05/20at 12:37; Start 07/05/20 at 12:30; Stop 07/05/20 at 12:31; Status DC Sodium Chloride 50 ml @ 0 mls/hr 1X ONCE IV Last administered on 07/05/20at 13:18; Start 07/05/20 at 12:30; Stop 07/05/20 at 12:31; Status DC Labetalol HCl (Normodyne Iv Push) 10 mg PRN Q10MIN PRN IVP HYPERTENSION; Start 07/05/20 at 12:30; Stop 07/05/20 at 12:52; Status DC Iohexol (Omnipaque 350 Mg/ml) 60 ml 1X ONCE IV Last administered on 07/05/20at 12:57; Start 07/05/20 at 12:30; Stop 07/05/20 at 12:34; Status DC Info (CONTRAST GIVEN -- Rx MONITORING) 1 each PRN DAILY PRN MC SEE COMMENTS; Start 07/05/20 at 12:45; Stop 07/07/20 at 12:44 Sodium Chloride 1,000 ml @ 70 mls/hr [id number] IV Last administered on 07/06/20at 03:23; Start 07/05/20 at 12:44; Stop 07/06/20 at 08:27; Status DC Labetalol HCl (Normodyne Iv Push) 10 mg PRN Q10MIN PRN IVP HYPERTENSION; Start 07/05/20 at 12:45 Nicardipine HCl 50 mg/Sodium Chloride 250 ml @ 25 mls/hr CONT PRN PRN IV HYPERTENSION; Start 07/05/20 at 12:45 Acetaminophen (Tylenol) 650 mg PRN Q6HRS PRN PO MILD PAIN / TEMP > 100.3'F; Start 07/05/20 at 12:45 Acetaminophen (Tylenol Supp) 325 mg PRN Q6HRS PRN WA MILD PAIN / TEMP > 100.3'F; Start 07/05/20 at 12:45 Ondansetron HCl (Zofran) 4 mg PRN Q6HRS PRN IV NAUSEA/VOMITING; Start 07/05/20 at 12:45 Pantoprazole Sodium (PROTONIX VIAL for IV PUSH) 40 mg 1X ONCE IVP Last administered on 07/05/20at 15:05; Start 07/05/20 at 15:15; Stop 07/05/20 at 15:16; Status DC Ibuprofen (Motrin) 400 mg PRN QID PRN PO INFLAMMATION; Start 07/05/20 at 19:00 Dicyclomine HCl (Bentyl) 10 mg PRN TID PRN PO ABDOMINAL PAIN; Start 07/05/20 at 19:00 Diphenhydramine HCl (Benadryl) 25 mg DAILY PO ; Start 07/06/20 at 09:00 Potassium Chloride (Klor-Con) 20 meq DAILY PO Last administered on 07/06/20at 08:13; Start 07/06/20 at 09:00 Simvastatin (Zocor) 40 mg QHS PO Last administered on 07/05/20at 20:49; Start 07/05/20 at 21:00 Pantoprazole Sodium (Protonix) 40 mg DAILYAC PO Last administered on 07/06/20at 08:13; Start 07/06/20 at 07:30 Tramadol HCl (Ultram) 100 mg BID PO Last administered on 07/06/20at 08:13; Start 07/05/20 at 21:00 Triamterene/HCTZ (Maxzide 37.5/ 25mg) 1 tab DAILY PO Last administered on 07/06/20 08:17; Start 07/06/20 at 09:00 Potassium Chloride (Klor-Con) 40 meq 1X ONCE PO Last administered on 07/05/20at 19:38; Start 07/05/20 at 19:00; Stop 07/05/20 at 19:01; Status DC Temazepam (Restoril) 15 mg PRN QHS PRN PO INSOMNIA Last administered on 07/05/20at 22:11; Start 07/05/20 at 21:15 Active Scripts Active Reported Simvastatin 40 Mg Tablet 1 Tab PO QHS Benadryl (Diphenhydramine Hcl) 25 Mg Capsule 1 Cap PO DAILY 30 Days Dicyclomine Hcl 10 Mg Capsule 1 Cap PO TID PRN Triamterene-Hctz 37.5-25 Mg Cp (Triamterene/Hydrochlorothiazid) 1 Each Capsule 1 Cap PO DAILY Potassium Chloride (Potassium Chloride) 20 Meq Tablet.er 20 Meq PO DAILY Omeprazole 40 Mg Capsule.dr 1 Cap PO BID Tramadol Hcl 100 Mg Tbmp.24hr 1 Tab PO BID MDD 1 Tablet(s) 30 Days Vitals/I & O Vital Sign - Last 24 Hours 07/05/20 07/05/20 07/05/20 07/05/20 12:35 12:35 12:37 12:47 Pulse 70 70 70 72 B/P (MAP) 166/88 (114) 166/88 (114) 176/87 (116) 171/86 (114) Pulse Ox 98 98 98 97 O2 Delivery Nasal Cannula Nasal Cannula Nasal Cannula Nasal Cannula O2 Flow Rate 2.0 2.0 2.0 2.0 07/05/20 07/05/20 07/05/20 07/05/20 12:57 13:02 13:18 13:28 Pulse 80 76 74 68 Resp 16 16 B/P (MAP) 186/91 (122) 180/91 (120) 177/78 (111) 165/94 (117) Pulse Ox 98 97 97 O2 Delivery Nasal Cannula Nasal Cannula Nasal Cannula O2 Flow Rate 2.0 2.0 2.0 07/05/20 07/05/20 07/05/20 07/05/20 13:38 13:48 13:58 14:08 Pulse 66 70 68 74 Resp 16 16 16 16 B/P (MAP) 177/84 (115) 168/88 (114) 168/81 (110) 168/86 (113) Pulse Ox 98 97 98 99 O2 Delivery Nasal Cannula O2 Flow Rate 2.0 07/05/20 07/05/20 07/05/20 07/05/20 14:18 14:28 14:38 14:48 Pulse 66 66 68 70 Resp 16 16 16 16 B/P (MAP) 165/89 (114) 151/79 (103) 158/80 (106) 148/77 (100) Pulse Ox 96 97 98 98 07/05/20 07/05/20 07/05/20 07/05/20 14:58 15:18 15:38 15:58 Pulse 68 70 68 72 Resp 16 16 16 16 B/P (MAP) 158/82 (107) 148/75 (99) 150/77 (101) 157/82 (107) Pulse Ox 96 98 98 98 O2 Delivery Nasal Cannula Nasal Cannula O2 Flow Rate 2.0 2.0 07/05/20 07/05/20 07/05/20 07/05/20 16:00 16:00 17:00 18:00 Temp 98.6 98.6 Pulse 70 72 68 Resp 16 16 16 B/P (MAP) 158/83 (108) 163/86 (111) 147/88 (107) Pulse Ox 99 97 98 O2 Delivery Nasal Cannula Nasal Cannula Nasal Cannula Nasal Cannula O2 Flow Rate 4.0 2.0 4.0 2.0 07/05/20 07/05/20 07/05/20 07/05/20 18:30 19:00 19:30 20:00 Pulse 61 72 64 Resp 16 16 B/P (MAP) 165/101 (122) 171/87 (115) 178/89 (118) Pulse Ox 95 95 98 O2 Delivery Nasal Cannula Nasal Cannula Nasal Cannula O2 Flow Rate 2.0 2.0 2.0 2.0 07/05/20 07/05/20 07/05/20 07/05/20 20:50 21:00 22:00 22:11 Pulse 64 61 Resp 18 21 B/P (MAP) 177/90 (119) 166/93 (117) Pulse Ox 97 97 O2 Delivery Nasal Cannula Nasal Cannula Nasal Cannula Room Air O2 Flow Rate 2.0 2.0 2.0 07/05/20 07/05/20 07/06/20 07/06/20 23:00 23:50 00:00 01:00 Temp 98.3 98.3 Pulse 67 65 63 Resp 20 12 22 B/P (MAP) 164/85 (111) 149/82 (104) 159/89 (112) Pulse Ox 98 97 98 O2 Delivery Nasal Cannula Nasal Cannula Nasal Cannula Nasal Cannula O2 Flow Rate 2.0 2.0 2.0 2.0 07/06/20 07/06/20 07/06/20 07/06/20 02:00 03:00 03:59 04:01 Temp 98.6 98.6 Pulse 59 60 59 Resp 18 14 20 B/P (MAP) 144/75 (98) 137/74 (95) 138/65 (89) Pulse Ox 98 98 99 O2 Delivery Nasal Cannula Nasal Cannula Nasal Cannula Nasal Cannula O2 Flow Rate 2.0 2.0 2.0 2.0 07/06/20 07/06/20 07/06/20 07/06/20 05:01 06:00 07:00 08:13 Temp 98.3 98.3 Pulse 59 56 60 Resp 24 28 17 B/P (MAP) 136/83 (100) 142/81 (101) 143/74 (97) Pulse Ox 99 98 98 O2 Delivery Nasal Cannula Nasal Cannula Nasal Cannula Nasal Cannula O2 Flow Rate 2.0 2.0 2.0 2.0 07/06/20 07/06/20 07/06/20 07/06/20 08:20 08:20 10:00 11:00 Temp 97.8 97.8 Pulse 58 66 68 Resp 16 16 B/P (MAP) 137/70 (92) 131/76 (94) 138/70 (92) Pulse Ox 96 94 94 O2 Delivery Nasal Cannula Nasal Cannula Room Air Room Air O2 Flow Rate 2.0 2.0 Intake and Output 07/05/20 07/05/20 07/06/20 15:00 23:00 07:00 Intake Total 112.1 ml 290 ml 240 ml Output Total 550 ml 125 ml Balance 112.1 ml -260 ml 115 ml Images CTA HEAD/NECK - CODE STROKE History:Reason: CODE STROKE, SLURRED SPEECH, [id number] 60ML / Spl. Instructions: / History: Technique: After bolus of intravenous contrast, volumetric CT data acquisition was acquired of the head and neck. Multiplanar reconstruction images to include MIP and 3-D reconstruction images are submitted. Exposure: One or more of the following individualized dose reduction techniques were utilized for this examination: 1. Automated exposure control 2. Adjustment of the mA and/or kV according to patient size 3. Use of iterative reconstruction technique. Comparison: July 05, 2020 Any determination of stenosis is based on NASCET criteria. Head CTA: ICA: Bilateral carotid siphon atheromatous plaque. No stenosis or occlusion. MCA: No stenosis, occlusion or aneurysm. TANA: No stenosis, occlusion or aneurysm. [employer]: No stenosis, occlusion or aneurysm. Basilar artery: No stenosis, occlusion or aneurysm. Distal vertebral arteries: No stenosis, occlusion or aneurysm. Mild paranasal sinus mucosal thickening most prominent within the right maxillary sinus. Mastoid air cells are clear. CT angiogram neck: Aortic arch: Atheromatous plaque within the aortic arch and branch vessels. Common carotid arteries: No stenosis, occlusion or dissection. Tortuous common carotid arteries proximally. Internal carotid arteries: No stenosis, occlusion or dissection. Mild atheromatous plaque within the left carotid bifurcation. External carotid arteries: Patent Vertebral arteries: No stenosis, occlusion or dissection. Mild atheromatous plaque within the right vertebral artery origin. Mild pulmonary emphysema. 5 mm right upper lobe nodular opacity (series 3 image 70). Bilateral upper lobe calcified pulmonary nodules. Enlarged multinodular thyroid with largest right thyroid nodule measuring 1.9 cm. Bones: Advanced multilevel cervical spondylosis most prominent C4-C5, C5-C6 and C6-C7. Impression: 1. No arterial stenosis or occlusion within the head or neck. 2. Mild atheromatous plaque within the head and neck. 3. Right upper lobe nodular opacity. Recommend comparison with prior imaging studies. If prior imaging studies are not available, recommend one-year follow-up if high risk. 4. Multinodular thyroid. Nonemergent ultrasound can further evaluate. Justicifation of Admission Dx: Justifications for Admission: Justification of Admission Dx: Yes Stroke - Ischemic: Stroke-Ischemic JESUS ESCOBAR MD Jul 06, 2020 12:32
[2020-07-06] MEDS ORDERED: ASPIRIN ENTERIC COATED 81 MG TABLET.DR. PO SCH (13:00)
--- NOTE | 2020-07-06 13:11 | NUR ---
SS following for discharge planning. SS reviewed pt chart and discussed with pt RN. Pt is from home with spouse and is currently on room air. PT/OT recommended home with home healthcare. Pt's family requesting [facility], ; fax [phone]. Discharge orders and referral phoned and faxed to [facility]. Pt's RN and pt's family notified.
--- NOTE | 2020-07-06 14:09 | DS ---
DATE OF DISCHARGE: 07/06/2020 HOSPITAL SUMMARY: An 80-year-old white female, patient of a doctor at [facility] came in with what appeared to be a right-sided stroke with right-sided weakness and some aphasia. She qualified for TPA and was taken to the ICU and TPA was given under the care of Dr. Johnson. She had an excellent response with recovery of her symptoms completely. Carotid Dopplers were normal. CT head was normal. MRI of the brain and echocardiogram are pending. All laboratory studies were unremarkable and lipids were low on simvastatin. She has done well since the TPA and as she is comfortable to be followed as an outpatient at this point. She was discharged on aspirin only. FINAL DIAGNOSES: Acute stroke, left sided with a right-sided weakness and aphasia, resolved with TPA. OPERATIONS, PROCEDURES, COMPLICATIONS: None. CONSULTATIONS: Dr. Elena. DISPOSITION: Home meds remain the same with the addition of aspirin 81 mg daily. Follow up with her primary care doctor at [facility] in 1-2 weeks. PROGNOSIS: Good. KATIE VERAS MD DR: [email or web address] JOB#: [id number] / [id number]
--- NOTE | 2020-07-06 14:56 | RAD ---
BRAIN W/O CONTRAST Date: 07/06/2020 12:44 PM Indication: CVA Comparison: None. Technique: Multiplanar multisequence MRI of the brain was performed without intravenous contrast using the standard protocol. Findings: No acute infarct. No acute or chronic hemorrhage. The ventricles are normal in size and configuration without hydrocephalus. Extensive FLAIR hyperintense signal in the subcortical and periventricular deep white matter, a nonspecific finding, most commonly seen with chronic small vessel ischemic disease. Mild generalized cerebral volume loss. The scalp and calvarium are normal. The pituitary and sella are normal. No Chiari malformation. Mild incompletely characterized degenerative spondylosis of the visualized upper cervical spine. The visualized orbits and globes are normal. The visualized paranasal sinuses are clear. The mastoid air cells are clear. Normal flow voids within the vertebral, basilar, and internal carotid arteries indicating patency. IMPRESSION: 1. No acute infarct, hemorrhage, mass, or hydrocephalus. 2. Extensive chronic small vessel ischemic disease and mild generalized cerebral volume loss. Electronically signed by: Allen Rodriguez MD (07/06/2020 2:54 PM) [id number]
[2020-07-06] MEDS ORDERED: ASPI81TA59 PO (16:33)
--- NOTE | 2020-07-06 18:09 | NUR ---
Discharge instructions given to patient regarding follow up appointments. Pt informed [facility] will be contacting them for their services. Education given over Stroke and signs and symptoms reviewed. Stroke packet given to pt and family. Pt verbalizes understanding.
--- NOTE | 2020-07-07 06:13 | CARD ---
MR#: [id number] Date of Study: 07/06/2020 Ordering Physician: JESUS ESCOBAR, Referring Physician: JESUS ESCOBAR, Tech: Elena Maciel APPROVED REPORT EXAM: Two-dimensional and M-mode echocardiogram with Doppler and color Doppler. Other Information Quality : AverageHR: 65bpm Technically limited study due to body habitus. INDICATION CVA/TIA RISK FACTORS Hypertension Hyperlipidemia 2D DIMENSIONS Left Atrium(2D)3.9 (1.6-4.0cm)IVSd0.9 (0.7-1.1cm) Aortic Root(2D)3.2 (2.0-3.7cm)LVDd4.4 (3.9-5.9cm) LVOT Diameter2.0 (1.8-2.4cm)PWd0.8 (0.7-1.1cm) LVDs2.5 (2.5-4.0cm)FS (%) 42.7 % SV63.2 mlLVEF(%)71.7 (>50%) Aortic Valve AoV Peak [place].106.7cm/sAoV VTI31.3cm AO Peak GR.4.5mmHgLVOT VTI 19.60cm AO Mean GR.4mmHg Mitral Valve MV E Awjdpiax43.0cm/sMV E Peak Gr.3mmHg MV DECEL [id number] A Vxyacgsj85.5cm/s MV E Mean Gr.1mmHgE/A Ratio1.1 TDI Lateral E' P. V7.21cm/sMedial E' P. V5.92cm/s E/Lateral E'10.7E/Medial E'13.0 Tricuspid Valve TR P. [id number]/sRAP [id number] TR Peak Gr.66alTcYPWJ34iaYm Pulmonary Vein S1 Jaxuzwmf64.5cm/sS2 Fndkywvs12.78cm/s D2 Vqjkrcov39.8cm/sPVa [id number] LEFT VENTRICLE The left ventricle is normal size. There is normal left ventricular wall thickness. The left ventricu lar systolic function is normal and the ejection fraction is within normal range. The Ejection Fracti on is 55-60%. There is normal LV segmental wall motion. Transmitral Doppler flow pattern is Grade I-a bnormal relaxation pattern. RIGHT VENTRICLE The right ventricle is normal size. There is normal right ventricular wall thickness. The right ventr icular systolic function is normal. ATRIA The left atrium size is normal. The right atrium size is normal. The interatrial septum is intact wit h no evidence for an atrial septal defect or patent foramen ovale as noted on 2-D or Doppler imaging. AORTIC VALVE The aortic valve is thickened but opens well. Doppler and Color Flow revealed no significant aortic r egurgitation. There is no significant aortic valvular stenosis. Calculated aortic valve area is 1.96 cm2 with maximum pressure gradient of 6 mmHg and mean pressure gradient of 4 mmHg. MITRAL VALVE The mitral valve is normal in structure and function. There is no evidence of mitral valve prolapse. There is no mitral valve stenosis. Doppler and Color-flow revealed trace mitral regurgitation. TRICUSPID VALVE The tricuspid valve is normal in structure and function. Doppler and Color Flow revealed trace tricus pid regurgitation with an estimated PAP of 29 mmHg. There is no tricuspid valve stenosis. PULMONIC VALVE The pulmonic valve is not well visualized. Doppler and Color Flow revealed no pulmonic valvular regur gitation. There is no pulmonic valvular stenosis. GREAT VESSELS The aortic root is normal in size. The IVC is normal in size and collapses >50% with inspiration. PERICARDIAL EFFUSION There is no evidence of significant pericardial effusion. Critical Notification Critical Value: No <Conclusion> The left ventricular systolic function is normal and the ejection fraction is within normal range. Th e Ejection Fraction is 55-60%. There is normal LV segmental wall motion. Signed by : Berry Lynn, Electronically Approved : 07/07/2020 06:12:53
== END 2020-07-06 17:50 | disposition home health service (06) | DRG 62 ==
LOC: ER 11:47 → ED HOLD 14:05 → 1 WEST ICU 15:14
PROVIDERS: ADMIT Family Medicine; ATTEND Family Medicine
DX: I63.9 Cerebral infarction, unspecified (principal); G81.91 Hemiplegia, unspecified affecting right dominant side; E04.2 Nontoxic multinodular goiter; R47.01 Aphasia; E11.9 Type 2 diabetes mellitus without complications; E78.5 Hyperlipidemia, unspecified; I10 Essential (primary) hypertension; Z82.49 Family history of ischemic heart disease and other diseases of the circulatory system
CPT/HCPCS: 36415; 37195; 70450; 70496; 70498; 70551; 72125; 80053; 80061; 83735; 84484; 85025; 85610; 85730; 93005; 93306; 96374; 96375; C9113; J2405; J2997; J7030; Q9967; 92610-GN; 97110-GP; 97530-GP; 97535-GO; 99285-25; G0378